=== PATIENT | female | born 1995 ===

== ENCOUNTER 2017-02-01 07:10 | Emergency (ER) | payer OTHER ==
[2017-02-01 07:10] VITALS: BMI 10.8
[2017-02-01 07:26] VITALS: BP 134/70; PULSE 70; RESP 16; TEMP 98.4; O2SAT 99
--- NOTE | 2017-02-01 07:55 | ED PDOC ---
HPI: Female Pain Time Seen by Provider: 02/01/17 07:13 Chief Complaint (Nursing): Female Genitourinary Chief Complaint (Provider): female genitourinary History Per: Patient History/Exam Limitations: no limitations Onset/Duration Of Symptoms: Other (x 1 year ) Additional Complaint(s): Svetlana Glynn is a 22 year old female, with a previous medical history of bilateral ovarian cyst, who presents to the ED for the evaluation of ovarian cysts stating she feels like they are getting lager because of the pain shes been experiencing over a year now. Patient also complaints of malodorous vaginal discharge with pain during intercourse and dysuria also ongoing for over a year. She reports having these symptoms for over a year and did not seek medical attention. PMD: [facility] Past Medical History Reviewed: Historical Data, Nursing Documentation, Vital Signs Vital Signs: Last Vital Signs Temp 98.4 F 02/01/17 07:23 Pulse 70 02/01/17 07:23 Resp 16 02/01/17 07:23 BP 134/70 02/01/17 07:23 Pulse Ox 99 02/01/17 07:23 - Medical History Other PMH: ovarian cysts - Family History Family History: States: Unknown Family Hx - Immunization History Hx Tetanus Toxoid Vaccination: No Hx Influenza Vaccination: No Hx Pneumococcal Vaccination: No - Home Medications Home Medications: Ambulatory Orders Medication Instructions Recorded Naproxen [Naprosyn] 500 mg PO BID PRN #20 tablet 02/01/17 - Allergies Allergies/Adverse Reactions: Allergies Allergy/AdvReac Type Severity Reaction Status Date / Time No Known Allergies Allergy Verified 10/07/16 11:22 Review of Systems ROS Statement: Except As Marked, All Systems Reviewed And Found Negative Constitutional: Negative for: Fever, Chills Gastrointestinal: Negative for: Nausea, Vomiting, Diarrhea Genitourinary Female: Positive for: Dysuria, Vaginal Discharge, Pelvic Pain Physical Exam - Reviewed Nursing Documentation Reviewed: Yes Vital Signs Reviewed: Yes - Physical Exam Appears: Positive for: Well, Non-toxic, No Acute Distress Head Exam: Positive for: ATRAUMATIC, NORMAL INSPECTION, NORMOCEPHALIC Skin: Positive for: Normal Color, Warm, Dry Eye Exam: Positive for: EOMI, Normal appearance, PERRL ENT: Positive for: Normal ENT Inspection Neck: Positive for: Normal, Painless ROM Cardiovascular/Chest: Positive for: Regular Rate, Rhythm Respiratory: Positive for: CNT, Normal Breath Sounds Gastrointestinal/Abdominal: Positive for: Bowel Sounds, Soft, Tenderness ( bilateral lower abdominal ) Pelvic Exam: Positive for: External Exam Normal (external shaven), Blood (at the OS along with irritation noted ), Tender W/Cervical Motion, Tender Adnexa ( bilateral ), Other (shaperoned by [employer] tech) Back: Positive for: Normal Inspection. Negative for: L CVA Tenderness, R CVA Tenderness, Vertebral Tenderness Extremity: Positive for: Normal ROM Neurologic/Psych: Positive for: Alert, Oriented - Laboratory Results Result Diagrams: 02/01/17 08:29 02/01/17 08:29 - ECG O2 Sat by Pulse Oximetry: 99 (RA) Pulse Ox Interpretation: Normal Medical Decision Making Medical Decision Making: Initial Plan: * labs * urine dipstick * urine * urinalysis * genital culture * chalmydia/GC RNA * reevaluation Scribe Attestation: Documented by Sakina Enamorado, acting as a scribe for Pari Munroe MD. Provider Scribe Attestation: All medical record entries made by the Scribe were at my direction and personally dictated by me. I have reviewed the chart and agree that the record accurately reflects my personal performance of the history, physical exam, medical decision making, and the department course for this patient. I have also personally directed, reviewed, and agree with the discharge instructions and disposition. Disposition - Clinical Impression Clinical Impression: Pelvic pain - Patient ED Disposition Is Patient to be Admitted: No Doctor Will See Patient In The: Office Counseled Patient/Family Regarding: Diagnosis, Need For Followup, Rx Given - Disposition Referrals: [facility] [Outside] [facility] [Outside] [facility] [Outside] Disposition: Routine/Home Disposition Time: 11:11 Condition: STABLE Prescriptions: Naproxen [Naprosyn] 500 mg PO BID PRN #20 tablet PRN Reason: Pain, Moderate (4-7) Instructions: Pelvic Pain in Women (ED) Forms: [facility] (Zambian) Print Language: CARLO MARTIN Present On Arrival: None
[2017-02-01 08:21] LABS: SQUAMOUS EPITHIAL 5 /hpf (0-5); URINE BILIRUBIN NEGATIVE (NEGATIVE); URINE BLOOD NEGATIVE (NEGATIVE); URINE CLARITY SLIGHTY-CLOUDY (Clear); URINE COLOR YELLOW (YELLOW); URINE GLUCOSE (UA) NEG (Normal); URINE LEUKOCYTE ESTERASE NEG Leu/uL (Negative); URINE NITRATE NEGATIVE (NEGATIVE); URINE PROTEIN NEGATIVE (NEGATIVE); URINE UROBILINOGEN 0.2-1.0 mg/dL (0.2-1.0)
[2017-02-01 08:36] LABS: BASO % 0.3 % (0.0-2.0); EOS # 0.2 K/uL (0.0-0.7); EOS % 2.5 % (0.0-4.0); HEMOGLOBIN 12.9 g/dL (12.0-16.0); LYMPH # 2.7 K/uL (1.0-4.3); MEAN CELL VOLUME 86.2 fl (81.0-99.0); MEAN CORPUSCULAR HEMOGLOBIN 28.5 pg (27.0-31.0); MEAN PLATELET VOLUME 8.2 fl (7.2-11.7); MONO # 0.4 K/uL (0.0-0.8); MONO % 6.4 % (0.0-10.0); NEUT # 3.1 K/uL (1.8-7.0); NEUT % 47.8 % (50.0-75.0); NRBC % 0.1 % (0.0-0.0); RBC 4.52 Mil/uL (3.80-5.20); RED CELL DISTRIBUTION WIDTH 13.8 % (11.5-14.5); WHITE BLOOD COUNT 6.4 K/uL (4.8-10.8)
[2017-02-01 08:44] LABS: BLOOD UREA NITROGEN 7 mg/dl (7-17); CALCIUM 9.1 mg/dL (8.4-10.2); GFR AFRICAN-AMERICAN > 60; GFR NON-AFRICAN AMERICAN > 60
--- NOTE | 2017-02-01 10:52 | US ---
HISTORY: pelvic pain, cervicitis. LMP 01/26/2017 COMPARISON: 05/15/2016 TECHNIQUE: Transvaginal only. Real -time technique with 2D, duplex and color Doppler FINDINGS: UTERUS: Measures 4.2 x 5.2 x 8.1 cm. Normal in size and appearance. No fibroid or other mass lesion seen. ENDOMETRIUM: Measures 5.5 mm in diameter. No ultrasound findings to suggest gestational sac, fluid, debris, mass or polyp or other pathologic process within the endometrium. CERVIX: No cervical abnormality identified. RIGHT OVARY: Measures 2.9 x 2.3 x 2.2 cm. No solid mass. Normal flow. Multiple (Largest 1.1 x 0.9 cm) follicles. LEFT OVARY: Measures 2.3 x 3.4 cm. No solid mass. Normal flow. Multiple subcentimeter follicles. FREE FLUID: No significant free fluid noted. OTHER FINDINGS: None. IMPRESSION: Unremarkable pelvic ultrasound. IUD identified in the cervix on the prior study is no longer seen. .
== END 2017-02-01 11:43 | disposition home or self-care (01) ==
LOC: H.ER 07:10
DX: N89.8 Other specified noninflammatory disorders of vagina (principal); N72 Inflammatory disease of cervix uteri

== ENCOUNTER 2017-12-05 22:20 | Emergency (ER) | payer SELFPAY ==
[2017-12-05 22:20] VITALS: BMI 10.8
[2017-12-05 22:33] VITALS: BP 136/81; PULSE 70; RESP 16; TEMP 98.3; O2SAT 99
--- NOTE | 2017-12-05 23:01 | ED PDOC ---
HPI: CCC, URI, Sore Throat Time Seen by Provider: 12/05/17 22:25 Chief Complaint (Nursing): ENT Problem Chief Complaint (Provider): Bilateral ear pain, right more than left History Per: Patient History/Exam Limitations: no limitations Have you had recent travel within the past 21 days to any of the following countries: [place], [place], [place] or [place]?: No Onset/Duration Of Symptoms: Days Additional Complaint(s): 22 yo female with no medical problems presents with ear pain bilateral, 10/10 on the right. Pt reports taking motrin at 3pm. Pt states the pain began last night. No fever/chills. No drainage. Past Medical History Reviewed: Historical Data, Nursing Documentation, Vital Signs Vital Signs: Last Vital Signs Temp 98.3 F 12/05/17 22:30 Pulse 70 12/05/17 22:30 Resp 16 12/05/17 22:30 BP 136/81 12/05/17 22:30 Pulse Ox 99 12/05/17 22:30 - Medical History PMH: No Chronic Diseases - Surgical History Surgical History: No Surg Hx - Family History Family History: States: Unknown Family Hx - Living Arrangements Living Arrangements: With Family - Social History Current smoker - smoking cessation education provided: No - Immunization History Hx Tetanus Toxoid Vaccination: No Hx Influenza Vaccination: No Hx Pneumococcal Vaccination: No - Home Medications Home Medications: Ambulatory Orders Medication Instructions Recorded Amoxicillin 875 mg PO BID #14 tablet 08/09/17 Ibuprofen [Motrin] 600 mg PO Q6 PRN #20 tab 08/09/17 Mag&Al/Simet/Diphen/Lido [First 5 ml MM Q6 #1 kit 08/09/17 Magic Mouthwash] Ciprofloxacin/Dexamethasone 4 drop .ROUTE BID #1 bottle 12/05/17 [Ciprodex 0.3%-0.1% 7.5 Ml] - Allergies Allergies/Adverse Reactions: Allergies Allergy/AdvReac Type Severity Reaction Status Date / Time No Known Allergies Allergy Verified 08/09/17 18:04 Review of Systems ROS Statement: Except As Marked, All Systems Reviewed And Found Negative Constitutional: Negative for: Fever, Chills ENT: Positive for: Ear Pain Physical Exam - Reviewed Nursing Documentation Reviewed: Yes Vital Signs Reviewed: Yes - Physical Exam Appears: Positive for: Well, Non-toxic, No Acute Distress Head Exam: Positive for: ATRAUMATIC, NORMAL INSPECTION, NORMOCEPHALIC Skin: Positive for: Normal Color, Warm, DRY Eye Exam: Positive for: Normal appearance ENT: Positive for: Other ((+) pinna pull, (+) tragel tug, Erythema and edema of bilateral external audiroty canals ). Negative for: Normal ENT Inspection Neck: Positive for: Normal, Painless ROM Cardiovascular/Chest: Positive for: Regular Rate, Rhythm Respiratory: Positive for: Normal Breath Sounds. Negative for: Accessory Muscle Use, Respiratory Distress Back: Positive for: Normal Inspection Extremity: Positive for: Normal ROM Neurologic/Psych: Positive for: Alert, Oriented - ECG O2 Sat by Pulse Oximetry: 99 Disposition - Clinical Impression Clinical Impression: Otitis externa - Patient ED Disposition Is Patient to be Admitted: No Counseled Patient/Family Regarding: Diagnosis, Need For Followup, Rx Given - Disposition Referrals: Keenan Hoffman MD [Staff Provider] - Disposition: Routine/Home Disposition Time: 23:11 Condition: STABLE Prescriptions: Ciprofloxacin/Dexamethasone [Ciprodex 0.3%-0.1% 7.5 Ml] 4 drop .ROUTE BID #1 bottle Instructions: Outer Ear Infection Print Language: SYRIAC
== END 2017-12-05 23:31 | disposition home or self-care (01) ==
LOC: H.ER 22:20
DX: H60.91 Unspecified otitis externa, right ear (principal)

== ENCOUNTER 2017-12-13 00:47 | Inpatient (IN) | payer OTHER ==
[2017-12-13 00:47] VITALS: BMI 10.8
--- NOTE | 2017-12-13 01:54 | ED PDOC ---
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 As per mother, patient was brought in because she took 6 Tylenol INSURANCE SALES ASSOCIATE to end her life. Mother reports she acted this way because she does not like her mother. Patient is currently denying SI. She denies any medical complaints. PMD: none provided. Past Medical History Reviewed: Historical Data, Nursing Documentation, Vital Signs Vital Signs: Last Vital Signs Temp 98.2 F 12/13/17 00:58 Pulse 76 12/13/17 00:58 Resp 16 12/13/17 00:58 BP Pulse Ox 100 12/13/17 00:58 - Medical History PMH: No Chronic Diseases - Family History Family History: States: Unknown Family Hx - Social History Current smoker - smoking cessation education provided: No Ex-Smoker (has not smoked in the last 12 months): No Alcohol: None Drugs: Denies - Immunization History Hx Tetanus Toxoid Vaccination: No Hx Influenza Vaccination: No Hx Pneumococcal Vaccination: No - Home Medications Home Medications: Ambulatory Orders Medication Instructions Recorded No Known Home Med 12/13/17 - Allergies Allergies/Adverse Reactions: Allergies Allergy/AdvReac Type Severity Reaction Status Date / Time No Known Allergies Allergy Verified 12/13/17 00:58 Review of Systems ROS Statement: Except As Marked, All Systems Reviewed And Found Negative Psych: Positive for: Suicidal ideation Physical Exam - Reviewed Nursing Documentation Reviewed: Yes Vital Signs Reviewed: Yes - Physical Exam Appears: Positive for: Non-toxic, No Acute Distress Head Exam: Positive for: ATRAUMATIC, NORMAL INSPECTION, NORMOCEPHALIC Skin: Positive for: Normal Color, Warm, Dry Eye Exam: Positive for: EOMI, Normal appearance, PERRL Neck: Positive for: Normal, Painless ROM Cardiovascular/Chest: Positive for: Regular Rate, Rhythm. Negative for: Murmur Respiratory: Positive for: Normal Breath Sounds. Negative for: Respiratory Distress Gastrointestinal/Abdominal: Positive for: Normal Exam, Soft. Negative for: Tenderness Extremity: Positive for: Normal ROM (upper and lower extremities) - Laboratory Results Result Diagrams: 12/13/17 02:30 12/13/17 06:25 - ECG O2 Sat by Pulse Oximetry: 100 (RA) Pulse Ox Interpretation: Normal Medical Decision Making Medical Decision Making: Time: 1:43 Initial Plan: psychiatric evaluation/overdose --EKG --acetaminophen --alcohol serum --CMP --Urine drug screen --Saliclyate --Crisis evaluation --U Preg --CBC with differentials --1:1 observation --urinalysis Time: 05:42 --Case discussed with Poison Control, advised repeat labs at 6:30, labs don't look like acute ingestion. Repeat LFT and Tylenol. Patient can then be cleared for Crisis evaluation. Time: 7:00 --Patient signed over to Dr. Munroe by this provider, pending lab work and crisis evaluation. Time: 07:14 --Patient is medically cleared as per crisis evaluation. Scribe Attestation: Documented by Whitney Banda and Munir Banda, acting as a scribe for Clint Gomez MD Provider Scribe Attestation: All medical record entries made by the Scribe were at my direction and personally dictated by me. I have reviewed the chart and agree that the record accurately reflects my personal performance of the history, physical exam, medical decision making, and the department course for this patient. I have also personally directed, reviewed, and agree with the discharge instructions and disposition. Disposition - Clinical Impression Clinical Impression: Depression - Patient ED Disposition Is Patient to be Admitted: No - Disposition Disposition: Transfer of Care Disposition Time: 07:00 Condition: STABLE Patient Signed Over To: Pari Munroe
[2017-12-13 02:41] LABS: BASO % 0.4 % (0.0-2.0); EOS # 0.2 K/uL (0.0-0.7); EOS % 1.8 % (0.0-4.0); HEMOGLOBIN 13.1 g/dL (12.0-16.0); LYMPH % 44.2 % (20.0-40.0); MEAN CELL VOLUME 87.2 fl (81.0-99.0); MEAN CORPUSCULAR HEMOGLOBIN 28.9 pg (27.0-31.0); MEAN CORPUSCULAR HGB CONC 33.2 g/dL (33.0-37.0); MEAN PLATELET VOLUME 8.2 fl (7.2-11.7); MONO # 0.6 K/uL (0.0-0.8); MONO % 7.1 % (0.0-10.0); NEUT # 4.2 K/uL (1.8-7.0); NEUT % 46.5 % (50.0-75.0); NRBC % 0.1 % (0.0-0.0); RBC 4.52 Mil/uL (3.80-5.20)
[2017-12-13 02:51] LABS: ALB/GLOB RATIO 1.1 (1.0-2.1); ALT/SGPT 25 U/L (9-52); AST/SGOT 27 U/L (14-36); BLOOD UREA NITROGEN 12 mg/dl (7-17); CALCIUM 9.3 mg/dL (8.4-10.2); GFR AFRICAN-AMERICAN > 60; GFR NON-AFRICAN AMERICAN > 60; SALICYLATE < 1.0 mg/dl
[2017-12-13 03:41] LABS: SQUAMOUS EPITHIAL 3 /hpf (0-5); URINE BILIRUBIN NEGATIVE (NEGATIVE); URINE BLOOD NEGATIVE (NEGATIVE); URINE CLARITY SLIGHTY-CLOUDY (Clear); URINE COLOR YELLOW (YELLOW); URINE GLUCOSE (UA) NEG (Normal); URINE LEUKOCYTE ESTERASE TRACE Leu/uL (Negative); URINE PROTEIN NEGATIVE (NEGATIVE); URINE UROBILINOGEN 0.2-1.0 mg/dL (0.2-1.0)
[2017-12-13 04:14] LABS: BARBITURATES, UR NEGATIVE (NEGATIVE); BENZODIAZEPINES, UR NEGATIVE (NEGATIVE); OPIATES, UR NEGATIVE (NEGATIVE); PHENCYCLIDINE, UR NEGATIVE (NEGATIVE)
[2017-12-13 06:38] LABS: ALT/SGPT 35 U/L (9-52); AST/SGOT 22 U/L (14-36); BLOOD UREA NITROGEN 12 mg/dl (7-17); CALCIUM 9.1 mg/dL (8.4-10.2); GFR AFRICAN-AMERICAN > 60; GFR NON-AFRICAN AMERICAN > 60
--- NOTE | 2017-12-13 07:14 | ED PDOC ---
- Laboratory Results Result Diagrams: 12/13/17 02:30 12/13/17 06:25 - ECG O2 Sat by Pulse Oximetry: 100 (RA) Medical Decision Making Medical Decision Making: received patient from Dr. Gomez. She is medically cleared. Patient is pending crisis evaluation. 8:50a - seen by crisis and admitted by Dr. Espinal for depression Disposition Doctor Will See Patient In The: Hospital - Clinical Impression Clinical Impression: Depression - POA Present On Arrival: None - Disposition Disposition: Admitted as In-Patient Disposition Time: 08:50 Condition: STABLE Instructions: Depression Forms: [facility] (Ukrainian)
[2017-12-13] MEDS ORDERED: Alum-Mag Hydrox-Simethicone Susp (30 mL) PO PRN (10:45)
[2017-12-13] MEDS ORDERED: DiphenhydrAMINE 50 mg/ml Inj IM PRN (10:45)
[2017-12-13] MEDS ORDERED: Magnesium Hydroxide Susp 30 ml UD PO PRN (10:45)
--- NOTE | 2017-12-13 11:09 | CARD ---
APPROVED REPORT EKG Measurement Heart [id number] <Conclusion> Normal sinus rhythm T wave abnormality, consider anterior ischemia Abnormal ECG
--- NOTE | 2017-12-13 14:15 | PCM.PSYCH ---
Initial Psychiatric Evaluation - Initial Psychiatric Evaluation Type of Admission: Voluntary Legal Status: Capacity Chief Complaint (in patient's own words): "I took too many Tylenol" Patient's Reaction to Hospitalization: HPI: 22 yo female BIB EMS after she ingested 6 Tylenol PM, in an attempt to kill herself as per her family. Patient is now denying that it was a suicide attempt. She states that it was just to sleep and that she did not and does not have any intention to kill herself. Patient was guarded and irritable during interview w/ sports book writer, stating that she does not believe she is depressed, nor does she need any medications or treatment for depression. She denies AH/VH /paranoia/delusions/ralph. She was agreeable to taking medication for insomnia. Collateral from the ER: "Retail Account Specialist received referral from patient's mother who stated that patient came from work yesterday, and told her mother that she was going to her friend's home who just came from [facility]. She asked her not to take her daughter because she was not feeling well. Patient stated that she called her daughter at 11:00 PM and reminded her to come home because her daughter was not sick. Patient came home and was on the phone with her child 's father. Ms. Baig stated that she heard her arguing with him on the phone. Around midnight her daughter came to her room naked and threw herself in bed, she noticed that she was drowsy and not doing well. Her daughter told her that she had taken pills to kill herself. Ms. Baig stated that her daughter don't use drugs or alcohol and she is a great mom. Ms. Baig admitted that she have problems with her daughter not because they don't get along or because she doesn 't love her as her daughter stated, she love her and her children are the most important thing for her. The problem is that she advice her about things that are important. Ms. Baig explained that her daughter is very "closed minded" and she don't like to listen when she attempt to give her a good advice. Her daughter was in a relationship for 4 years, have her 2 1/2 daughter and not is seeing another person. She believes that it is to soon for her to start a new relationship. Ms. Baig believes that it is going to be beneficial for daughter to be admitted, for a couple of days to help her get her ideas clear. In reference to her father's , she was very close to her father, and she is sure that she got affected by his , but she believes that it was not sole reason from her daughter's decision to hurt herself. No signs of prior concerns of suicidal ideas or depression. " PMHx: Denies acute medical issues PPHx: Denies past psychiatric history ALL: NKDA SHx: Lives w/ mother, brother and child; employed; denies drugs/ etoth/cig use; from Current Medications: Active Medications Generic Name Dose Route Start Last Admin Trade Name Freq PRN Reason Stop Dose Admin Acetaminophen 650 mg 12/13/17 10:45 Tylenol 325mg Tab PO Q4 PRN Pain, moderate (4-7) Al Hydrox/Mg Hydrox/Simethicone 30 ml 12/13/17 10:45 Maalox Plus 30 Ml PO Q4 PRN Dyspepsia Diphenhydramine HCl 50 mg 12/13/17 10:45 Benadryl IM Q6 PRN Extrapyramidal S/S Unable PO Diphenhydramine HCl 50 mg 12/13/17 10:45 Benadryl PO Q6 PRN Extrapyramidal Symptoms Haloperidol 5 mg 12/13/17 10:45 Haldol PO Q4 PRN Agitation Haloperidol Lactate 5 mg 12/13/17 10:45 Haldol IM Q4 PRN Agitation, Unable to Take PO Lorazepam 2 mg 12/13/17 10:45 Ativan IM Q4 PRN Anxiety/Agitation,Unable PO Lorazepam 2 mg 12/13/17 10:45 Ativan PO Q4 PRN Anxiety/Agitation Magnesium Hydroxide 30 ml 12/13/17 10:45 Milk Of Magnesia PO HS PRN Constipation Trazodone HCl 50 mg 12/13/17 22:00 Desyrel PO HS MEMO Past Psychiatric History - Past Psychiatric History Previous Treatment History: None Pertinent Medical Hx (Current Medical&Sleep Prob, Allergies): Allergies Allergy/AdvReac Type Severity Reaction Status Date / Time No Known Allergies Allergy Verified 12/13/17 00:58 No Known Home Med 12/13/17 Review of Systems - Psychiatric Psychiatric: As Per HPI, Abnormal Sleep Pattern, Depression, Difficulty Concentrating, Irritability, Mood Swings, Suicidal Ideation Mental Status Examination - Personal Presentation Personal Presentation: Looks stated age - Affect Affect: Constricted, Depressed - Motor Activity Motor Activity: Calm - Reliability in Providing Information Reliability in Providing Information: Fair - Speech Speech: Coherent - Mood Mood: Neutral (Reports her mood as "fine") - Formal Thought Process Formal Thought Process: No Impairment - Hallucinations/Delusions Additional comments: Denies AH/VH/paranoia/delusions - Obsessions/Compulsions Obsessions: No Compulsions: No - Cognitive Functions Orientation: Person, Place, Situation, Time Attention/Concentration: Attentive Estimate of Intelligence: Average Judgement: Imparied, as evidence by: Poor judgement Memory: Recent intact, as evidence by: Ability to recall events of the day, Remote intact, as evidenced by: Abilit to recall sig. life events, Remote intact , as evidenced by: Ability to recall historical events - Risk Risk: Suicidal - Strength & Assets Inventory Strength & Assets Inventory: Family support DSM 5 DX - DSM 5 DSM 5 Diagnosis: Mood Disorder, r/o Major Depressive Disorder; r/o Borderline Personality Disorder - Recommended/Plan of Treatment Treatment Recommendations and Plan of Treatment: Mood Disorder, r/o Major Depressive Disorder; r/o Borderline Personality Disorder -Admit to psychiatry unit -Individual and group therapy -Obtain collateral history -Start Trazodone 50 mg PO HS -Medicine consult -Disposition planning Discharge Plan and Discharge Criteria: Discharge patient when she is psychiatrically stable - Smoking Cessation Smoking Cessation Initiated: No Reason for not providing: Not indicated
[2017-12-13 17:52] VITALS: RESP 18
--- NOTE | 2017-12-14 07:13 | PCM.PYCHDC ---
Mental Status Examination - Mental Status Examination Orientation: Person, Place, Situation, Time Memory: Intact Mood: Neutral Affect: Broad Speech: Appropriate Attention: WNL Concentration: WNL Association: WNL Fund of Knowledge: WNL Formal Thought Process: No Impairment Description of patient's judgement and insight: Fair I/J Psychotic Thoughts and Behaviors: No AH/VH/paranoia/delusions Suicidal Ideation: No Current Homicidal Ideation?: No Discharge Summary - Discharge Note Reason for Hospitalization: HPI: 22 yo female BIB EMS after she ingested 6 Tylenol PM, in an attempt to kill herself as per her family. Patient is now denying that it was a suicide attempt. She states that it was just to sleep and that she did not and does not have any intention to kill herself. Patient was guarded and irritable during interview w/ marketing copywriter, stating that she does not believe she is depressed, nor does she need any medications or treatment for depression. She denies AH/VH /paranoia/delusions/ralph. She was agreeable to taking medication for insomnia. Collateral from the ER: "[facility] received referral from patient's mother who stated that patient came from work yesterday, and told her mother that she was going to her friend's home who just came from [facility]. She asked her not to take her daughter because she was not feeling well. Patient stated that she called her daughter at 11:00 PM and reminded her to come home because her daughter was not sick. Patient came home and was on the phone with her child 's father. Ms. Baig stated that she heard her arguing with him on the phone. Around midnight her daughter came to her room naked and threw herself in bed, she noticed that she was drowsy and not doing well. Her daughter told her that she had taken pills to kill herself. Ms. Baig stated that her daughter don't use drugs or alcohol and she is a great mom. Ms. Baig admitted that she have problems with her daughter not because they don't get along or because she doesn 't love her as her daughter stated, she love her and her children are the most important thing for her. The problem is that she advice her about things that are important. Ms. Baig explained that her daughter is very "closed minded" and she don't like to listen when she attempt to give her a good advice. Her daughter was in a relationship for 4 years, have her 2 1/2 daughter and not is seeing another person. She believes that it is to soon for her to start a new relationship. Ms. Baig believes that it is going to be beneficial for daughter to be admitted, for a couple of days to help her get her ideas clear. In reference to her father's , she was very close to her father, and she is sure that she got affected by his , but she believes that it was not sole reason from her daughter's decision to hurt herself. No signs of prior concerns of suicidal ideas or depression. " PMHx: Denies acute medical issues PPHx: Denies past psychiatric history ALL: NKDA SHx: Lives w/ mother, brother and child; employed; denies drugs/ etoth/cig use; from Laboratory Data: Abnormal Lab Results 12/13/17 03:08 Urine Color Yellow Urine Clarity Slighty-cloudy Urine pH 6.0 Ur Specific [place] 1.031 H Urine Protein Negative Urine Glucose (UA) Neg Urine Ketones Negative Urine Blood Negative Urine Nitrate Negative Urine Bilirubin Negative Urine Urobilinogen 0.2-1.0 Ur Leukocyte Esterase Trace Urine RBC (Auto) 3 Urine Microscopic WBC 2 Ur Squamous Epith Cells 3 Consultations:: List each consultation separately and include: 1. Reason for request. 2. Findings. 3. Follow-up Summary of Hospital Course include:: 1. Description of specific treatment plan utilized for patients during their course of treatmen. 2. Summarize the time- course for resolution of acute symptoms and/or regressed behaviors. 3. Describe issues identified and worked on during hospitalization. 4. Describe medication utilized. 5. Describe medical problems identified and treated. 6. Reassessment of suicide risk Summary of Hospital Course: Patient was admitted to the psychiatry unit. Individual and group therapy were provided. Patient submitted a 48 hour letter requesting discharge, was [place] [facility] [place]. She continues to request to be discharged and is not willing to take any psychiatric medications. Patient will be discharged AMA. Risks of leaving AMA explained to the patient. She currrently denies depression/anxiety/AH/VH/SI/HI. - Final Diagnosis (DSM 5) Condition upon Discharge: STABLE DSM 5: Depressive Disorder; r/o Borderline Personality Disorder Disposition: AGAINST MEDICAL ADVICE Follow-up Treatment Plan: -Discharge AMA -Patient currently refusing psychiatric medications and treatment - Smoking Cessation Smoking Cessation Medication prescribed: No Reason for not providing: Not indicated - Antipsychotic Medications Pt discharged on 2 or more routine antipsychotic medications: No
[2017-12-14 08:48] VITALS: BP 116/69; PULSE 76; TEMP 97.7
[2017-12-16 20:13] VITALS: O2SAT 100
== END 2017-12-14 10:30 | disposition left against medical advice (07) | DRG 426 ==
LOC: H.ER 00:47 → H.ERHOLD 09:01 → H.PSYCH 12:27
PROVIDERS: ADMIT Psychiatry & Neurology Psychiatry; ATTEND Psychiatry & Neurology Psychiatry
PROC: GZ51ZZZ Individual Psychotherapy, Behavioral (ICD-10-PCS; principal; 2017-12-13)
DX: F32.9 Major depressive disorder, single episode, unspecified (principal); G47.00 Insomnia, unspecified